=== PATIENT | male | born 1975 | race Caucasian/White ===

== ENCOUNTER 2019-05-23 19:57 | Emergency (ER) | payer BC, OTHER ==
--- NOTE | 2019-05-23 20:43 | EDM.PDOC ---
ED HPI GENERAL MEDICAL PROBLEM - General Chief Complaint: General Stated Complaint: FOREIGN BODY IN THROAT Time Seen by Provider: 05/23/19 20:08 Source of Information: Reports: Patient History Limitations: Reports: No Limitations - History of Present Illness INITIAL COMMENTS - FREE TEXT/NARRATIVE: 44 YO WM presents to ER with foreign body sensation in throat. Pt reports he was eating chicken wings and felt something sharp on the right side of his throat that felt like it was stuck in the upper back portion of his throat. Pt tried to remove it with his fingers without success. Pt denies shortness of breath or difficulty swallowing although he reports sensation has improved while in ER. Pt in NAD. No trismus, no stridor. Pt able to drink water at bedside without difficulty. Onset: Sudden Location: Reports: Neck Quality: Reports: Sharp Severity: Mild Improves with: Reports: None Worsens with: Reports: Other (swallowing) Associated Symptoms: Reports: No Other Symptoms. Denies: Chest Pain, Nausea/ Vomiting, Shortness of Breath Throat Pain Score (Numeric/FACES): 5 - Related Data Allergies Allergy/AdvReac Type Severity Reaction Status Date / Time No Known Allergies Allergy Verified 05/23/19 20:20 Home Meds: Home Meds Esomeprazole Magnesium [Nexium] 20 mg PO DAILY 05/23/19 [History] Hydrocodone/Acetaminophen [Hydrocodon-Acetaminophen 5-325] 1 tab PO ASDIRECTED PRN 05/23/19 [History] Losartan Potassium 50 mg PO DAILY 05/23/19 [History] RX: Ketorolac [Toradol] 10 mg PO ASDIRECTED PRN 05/23/19 [History] Social & Family History - Tobacco Use Smoking Status *Q: Former Smoker Used Tobacco, but Quit: No - Caffeine Use Caffeine Use: Reports: Coffee Other Caffeine Use: coffee every AM - Alcohol Use Days Per Week of Alcohol Use: 1 Number of Drinks Per Day: 0 Total Drinks Per Week: 0 - Recreational Drug Use Recreational Drug Use: No ED ROS GENERAL - Review of Systems Review Of Systems: See Below Constitutional: Reports: No Symptoms HEENT: Reports: Throat Pain Respiratory: Reports: No Symptoms Cardiovascular: Reports: No Symptoms Endocrine: Reports: No Symptoms GI/Abdominal: Reports: No Symptoms : Reports: No Symptoms Musculoskeletal: Reports: No Symptoms Skin: Reports: No Symptoms Neurological: Reports: No Symptoms Psychiatric: Reports: No Symptoms Hematologic/Lymphatic: Reports: No Symptoms Immunologic: Reports: No Symptoms ED EXAM, GENERAL - Physical Exam Exam: See Below Exam Limited By: No Limitations General Appearance: Alert, WD/WN, No Apparent Distress Nose: Normal Inspection, Normal Mucosa, No Blood Throat/Mouth: Normal Inspection, Normal Lips, Normal Teeth, Normal Gums, Normal Oropharynx, Normal Voice, No Airway Compromise Head: Atraumatic, Normocephalic Neck: Normal Inspection, Supple, Non-Tender, Full Range of Motion Respiratory/Chest: No Respiratory Distress, Lungs Clear, Normal Breath Sounds, No Accessory Muscle Use, Chest Non-Tender Cardiovascular: Normal Peripheral Pulses, Regular Rate, Rhythm, No Edema, No Gallop, No JVD, No Murmur, No Rub GI/Abdominal: Normal Bowel Sounds, Soft, Non-Tender, No Organomegaly, No Distention, No Abnormal Bruit, No Mass Back Exam: Normal Inspection, Full Range of Motion, NT Extremities: Normal Inspection, Normal Range of Motion, Non-Tender, Normal Capillary Refill, No Pedal Edema Neurological: Alert, Oriented, CN II-XII Intact, Normal Cognition, Normal Gait, Normal Reflexes, No Motor/Sensory Deficits Psychiatric: Normal Affect, Normal Mood Skin Exam: Warm, Dry, Intact, Normal Color, No Rash Lymphatic: No Adenopathy Course - Vital Signs Last Recorded V/S: Last Vital Signs Temp 36.4 C 05/23/19 20:07 Pulse 114 H 05/23/19 20:07 Resp 20 05/23/19 20:07 BP 135/94 H 05/23/19 20:07 Pulse Ox 94 L 05/23/19 20:07 - Orders/Labs/Meds Orders: Active Orders 24 hr Category Date Time Status Neck Soft Tissue [CR] Stat Exams 05/23/19 20:16 Taken - Radiology Interpretation Free Text/Narrative:: soft tissue neck- NAD; no evidence of foreign body Departure - Departure Time of Disposition: 21:11 Disposition: Home, Self-Care 01 Condition: Good Clinical Impression: Foreign body sensation in throat - Discharge Information Instructions: Swallowed Foreign Body, Adult, [id number] Referrals: Shlomo Wu PA-C [Primary Care Provider] - Forms: ED Department Discharge Additional Instructions: 1. discharge home 2. motrin 600mg PO Q6 as needed 3. return to ER for worsening symptoms 4. follow up with PCP for further evaluation and treatment Sepsis Event Note - Evaluation Sepsis Screening Result: No Definite Risk - Focused Exam Vital Signs: Vital Signs Temp Pulse Resp BP Pulse Ox 05/23/19 20:07 36.4 C 114 H 20 135/94 H 94 L Date Exam was Performed: 05/23/19 Time Exam was Performed: 21:10 - My Orders Last 24 Hours: My Active Orders 05/23/19 20:16 Neck Soft Tissue [CR] Stat - Assessment/Plan Last 24 Hours: My Active Orders 05/23/19 20:16 Neck Soft Tissue [CR] Stat Assessment:: 1. foreign body sensation without evidence of foreign body Plan: 1. discharge home 2. motrin 600mg PO Q6 as needed 3. return to ER for worsening symptoms 4. follow up with PCP for further evaluation and treatment
[2019-05-23] MEDS: Ibuprofen 400 MG Tab PO ONE (21:19)
== END 2019-05-23 21:22 | disposition home or self-care (01) ==
LOC: KA.ED 19:57
DX: R09.89 Other specified symptoms and signs involving the circulatory and respiratory systems (principal); Z87.891 Personal history of nicotine dependence; Z79.899 Other long term (current) drug therapy
CPT/HCPCS: 70360; 99283; A9270